=== PATIENT | male | born 1975 | race Caucasian/White ===

== ENCOUNTER 2019-03-27 14:23 | Emergency (ER) | payer OTHER ==
[~2019-03-27] VITALS: Ht 182.9 cm; Wt 90.7 kg
[2019-03-27 14:23] VITALS: BP 124/67
== END 2019-03-27 14:42 | disposition left against medical advice (07) ==
LOC: M.ERS 14:23
DX: Z53.21 Procedure and treatment not carried out due to patient leaving prior to being seen by health care provider (principal)